=== PATIENT | male | born 1975 | race Caucasian/White ===

== ENCOUNTER 2017-06-10 12:32 | Emergency (ER) | payer MEDICAID ==
[~2017-06-10] VITALS: Ht 175.3 cm; Wt 85.7 kg
[2017-06-10 13:23] LABS: BASOPHIL % 0.9 % (0-2); PLATELET COUNT 275 x10^3mcL (130-400); RED CELL DISTRIBUTION WIDTH 12.9 % (11.5-14.5)
[2017-06-10 13:40] LABS: CALCIUM 9.2 mg/dL (8.5-10.1); CARBON DIOXIDE 28.6 mmol/L (21-32); CHLORIDE SERUM 102 mmol/L (98-107); CREATININE SERUM 0.9 mg/dL (0.7-1.3); GFR1 > 60 mL/min; GLUCOSE SERUM 100 mg/dL (74-106); POTASSIUM SERUM 4.2 mmol/L (3.5-5.1); SODIUM SERUM 139 mmol/L (136-145)
[2017-06-10 13:57] LABS: ALBUMIN 3.9 g/dL (3.4-5.0); ALKALINE PHOSPHATASE 125 U/L (46-116); ALT/SGPT 27 U/L (16-63); AST/SGOT 15 U/L (15-37); BILIRUBIN TOTAL 0.6 mg/dL (0.20-1.00)
[2017-06-10 13:58] LABS: TOTAL PROTEIN, SERUM 8.6 g/dL (6.4-8.2)
[2017-06-10 14:54] VITALS: BP 165/106
== END 2017-06-10 15:23 | disposition home or self-care (01) ==
LOC: ED 12:32
PROVIDERS: Emergency Medicine
DX: S39.012A Strain of muscle, fascia and tendon of lower back, initial encounter (principal); I16.0 Hypertensive urgency; F17.200 Nicotine dependence, unspecified, uncomplicated; X50.9XXA Other and unspecified overexertion or strenuous movements or postures, initial encounter; Y93.89 Activity, other specified; Y92.89 Other specified places as the place of occurrence of the external cause; Y99.8 Other external cause status
CPT/HCPCS: J1885; J3010; J3490